=== PATIENT | male | born 1960 | race African-American/Black ===

== ENCOUNTER 2024-12-23 19:48 | Emergency (ER) | payer SELFPAY ==
[~2024-12-23] VITALS: Ht 167.6 cm; Wt 73.0 kg
[2024-12-23 20:01] VITALS: O2SAT 96
[2024-12-24] MEDS: TRANEXAMIC ACID 1,000MG/10ML TP ONE (00:15)
[2024-12-24] MEDS ORDERED: OFLO5DRO4 LEFT EAR (01:39)
[2024-12-24 02:42] VITALS: BP 142/85; PULSE 91; RESP 20; TEMP 36.7; O2SAT 94
== END 2024-12-24 02:42 | disposition home or self-care (01) ==
LOC: ER 19:48
DX: H92.23 Otorrhagia, bilateral (principal); I10 Essential (primary) hypertension; Z86.73 Personal history of transient ischemic attack (TIA), and cerebral infarction without residual deficits
CPT/HCPCS: 99283; Z7610 ×2

== ENCOUNTER 2025-01-22 13:31 | Inpatient (IN) | payer OTHER, MEDICAID ==
[~2025-01-22] VITALS: Ht 175.3 cm; Wt 72.6 kg
[~2025-01-22 13:31] MED LIST: OFLO5DRO4 LEFT EAR
[2025-01-22 14:53] LABS: BASOPHILS % 0.4 % (0.0-2.0); EOSINOPHILS % 3.2 % (0.0-5.0); HEMATOCRIT. 35.1 % (42.0-52.0); HEMOGLOBIN. 11.1 g/dL (14.0-18.0); LYMPHOCYTES % 38.2 % (20.0-50.0); MEAN CORPUSCULAR HEMOGLOBIN 28.4 pg (28.0-32.0); MEAN CORPUSCULAR HGB CONC 31.5 g/dL (31.0-37.0); MEAN CORPUSCULAR VOLUME 90.2 fL (80.0-94.0); MEAN PLATELET VOLUME 6.9 fl (7.4-10.4); MONOCYTES % 9.3 % (2.0-8.0); NEUTROPHILS % 48.9 % (40.0-76.0); PLATELET 298 x1000/uL (130-400); RED BLOOD CELL COUNT 3.89 mill/uL (4.7-6.1); RED CELL DISTRIBUTION WIDTH 16.1 % (11.6-14.6); WHITE BLOOD COUNT 4.1 x1000/uL (4.5-11.0)
[2025-01-22 14:58] LABS: CHLORIDE 105 mEq/L (98-107); POTASSIUM 4.4 mEq/L (3.5-5.1); SODIUM 141 mEq/L (136-145)
[2025-01-22 14:59] LABS: CARBON DIOXIDE 27 mEq/L (21-32)
[2025-01-22 15:00] LABS: CALCIUM 9.9 mg/dL (8.7-10.4)
[2025-01-22 15:04] LABS: CREATININE 0.8 mg/dL (0.6-1.3); GLUCOSE 126 mg/dL (70-105); UREA NITROGEN BLOOD 21 mg/dL (9-23)
[2025-01-22] MEDS: AMPICILLIN SOD/SULBACTAM NA 3 G in SODIUM CHLORIDE 0.9% 100 ML IV STA (15:10)
[2025-01-22 15:34] LABS: PROTHROMBIN TIME 10.9 sec (9.6-11.0)
[2025-01-22] MEDS: IOHEXOL-300 100 ML BOTTLE ONE (16:21)
[2025-01-22] MEDS ORDERED: MAGNESIUM/ALUMINUM HYDROXIDE/SIMETHICONE 30ML UDC PO PRN (17:45)
[2025-01-22] MEDS ORDERED: ACETAMINOPHEN 325MG TABLET PO PRN (17:45)
[2025-01-22] MEDS ORDERED: GUAIFENESIN 200MG/10ML SUGAR FREE UDC PO PRN (17:45)
[2025-01-22] MEDS ORDERED: DOCUSATE SODIUM 100MG CAPSULE PO PRN (17:45)
[2025-01-22] MEDS ORDERED: IPRATROPIUM/ALBUTEROL 0.5-3(2.5)MG/3ML NEB NEB PRN (17:45)
[2025-01-22] MEDS ORDERED: ONDANSETRON HCL 4MG/2ML INJ IV PRN (17:45)
[2025-01-22] MEDS ORDERED: HYDROCODONE/ACETAMINOPHEN 5/325MG TABLET PO PRN (17:45)
[2025-01-22] MEDS ORDERED: NALOXONE HCL 0.4MG/ML VIAL IV PRN (18:00)
[2025-01-22] MEDS: CLONIDINE 0.1MG TABLET PO PRN (18:53)
[2025-01-22] MEDS: ENOXAPARIN 40MG/0.4ML SYR SUBCUT SCH (18:53)
[2025-01-22 20:00] VITALS: BP_SYST 152; BP_SYST 166; BP_DIAS 102; BP_DIAS 109; PULSE 77; PULSE 79; RESP 18; RESP 19; TEMP 36; TEMP 36.4; O2SAT 99
[2025-01-22] MEDS ORDERED: AMPICILLIN SOD/SULBACTAM NA 3 G in SODIUM CHLORIDE 0.9% 100 ML IV SCH (20:00)
[2025-01-22] MEDS: AMPICILLIN SOD/SULBACTAM NA 3 G in SODIUM CHLORIDE 0.9% 100 ML IV SCH (22:20)
[2025-01-23] VITALS: BP 133/71; PULSE 71; RESP 19; TEMP 36.4; O2SAT 98
[2025-01-23 04:31] VITALS: BP 136/84; PULSE 65; RESP 20; TEMP 36.6; O2SAT 100
[2025-01-23 08:00] VITALS: BP 162/89; PULSE 83; RESP 20; TEMP 36.6; O2SAT 100
[2025-01-23 08:11] LABS: BASOPHILS % 0.5 % (0.0-2.0); EOSINOPHILS % 4.3 % (0.0-5.0); HEMATOCRIT. 31.8 % (42.0-52.0); HEMOGLOBIN. 10.1 g/dL (14.0-18.0); LYMPHOCYTES % 40.1 % (20.0-50.0); MEAN CORPUSCULAR HEMOGLOBIN 29.1 pg (28.0-32.0); MEAN CORPUSCULAR HGB CONC 31.8 g/dL (31.0-37.0); MEAN CORPUSCULAR VOLUME 91.5 fL (80.0-94.0); MEAN PLATELET VOLUME 6.9 fl (7.4-10.4); MONOCYTES % 9.5 % (2.0-8.0); NEUTROPHILS % 45.6 % (40.0-76.0); PLATELET 269 x1000/uL (130-400); RED BLOOD CELL COUNT 3.47 mill/uL (4.7-6.1); RED CELL DISTRIBUTION WIDTH 16.1 % (11.6-14.6); WHITE BLOOD COUNT 3.8 x1000/uL (4.5-11.0)
[2025-01-23 08:17] LABS: THYROID STIMULATING HORMONE 2.09 uIU/mL (0.55-4.78)
[2025-01-23 12:00] VITALS: BP 124/83; PULSE 79; RESP 20; TEMP 36.1; O2SAT 100
[2025-01-23 16:00] VITALS: BP 148/86; PULSE 66; RESP 18; TEMP 36.4; O2SAT 100
[2025-01-23] MEDS: VANCOMYCIN 1.5GM/250ML IV NR (16:00)
[2025-01-23 20:00] VITALS: BP 140/93; PULSE 63; RESP 18; TEMP 36.4; O2SAT 99
[2025-01-23] MEDS ORDERED: INFLUENZA VACCINE 05/PF 0.5 ML SYRINGE IM ONE (21:00)
[2025-01-24 00:30] VITALS: BP 160/100; PULSE 65; RESP 19; TEMP 36.3; O2SAT 99
[2025-01-24] MEDS: VANCOMYCIN 1GM/200ML PMX (BAXTER) IV SCH ×2 (00:30→20:49)
[2025-01-24 04:00] VITALS: BP 120/86; PULSE 61; RESP 20; TEMP 36.4; O2SAT 99
[2025-01-24 07:30] LABS: CALCIUM 9.3 mg/dL (8.7-10.4); CHLORIDE 104 mEq/L (98-107); POTASSIUM 3.9 mEq/L (3.5-5.1); SODIUM 141 mEq/L (136-145)
[2025-01-24 07:31] LABS: CARBON DIOXIDE 27 mEq/L (21-32)
[2025-01-24 07:33] LABS: BASOPHILS % 0.5 % (0.0-2.0); EOSINOPHILS % 3.4 % (0.0-5.0); HEMATOCRIT. 33.1 % (42.0-52.0); HEMOGLOBIN. 10.8 g/dL (14.0-18.0); LYMPHOCYTES % 37.8 % (20.0-50.0); MEAN CORPUSCULAR HEMOGLOBIN 29.3 pg (28.0-32.0); MEAN CORPUSCULAR HGB CONC 32.5 g/dL (31.0-37.0); MEAN CORPUSCULAR VOLUME 90.2 fL (80.0-94.0); MEAN PLATELET VOLUME 7.9 fl (7.4-10.4); MONOCYTES % 8.8 % (2.0-8.0); NEUTROPHILS % 49.5 % (40.0-76.0); PLATELET 285 x1000/uL (130-400); RED BLOOD CELL COUNT 3.67 mill/uL (4.7-6.1); RED CELL DISTRIBUTION WIDTH 16.2 % (11.6-14.6); WHITE BLOOD COUNT 4.1 x1000/uL (4.5-11.0)
[2025-01-24 07:36] LABS: CREATININE 0.8 mg/dL (0.6-1.3); GLUCOSE 78 mg/dL (70-105); UREA NITROGEN BLOOD 11 mg/dL (9-23)
[2025-01-24 08:00] VITALS: BP 166/82; PULSE 79; RESP 19; TEMP 37.7; O2SAT 99
[2025-01-24] MEDS ORDERED: VANCOMYCIN 1GM/200ML PMX (BAXTER) IV SCH (10:15)
[2025-01-24 12:00] VITALS: BP 122/78; PULSE 60; RESP 18; TEMP 36.9; O2SAT 98
[2025-01-24 16:00] VITALS: BP 128/71; PULSE 69; RESP 20; TEMP 36.8; O2SAT 99
[2025-01-24 20:00] VITALS: BP 131/92; PULSE 79; RESP 20; O2SAT 95
[2025-01-25] VITALS: BP 102/67; PULSE 57; RESP 18; TEMP 37; O2SAT 97
[2025-01-25 04:00] VITALS: BP 116/75; PULSE 72; RESP 20; TEMP 36.7; O2SAT 95
[2025-01-25 07:23] LABS: CHLORIDE 108 mEq/L (98-107); POTASSIUM 3.5 mEq/L (3.5-5.1)
[2025-01-25 07:24] LABS: CALCIUM 7.5 mg/dL (8.7-10.4); CARBON DIOXIDE 26 mEq/L (21-32)
[2025-01-25 07:29] LABS: CREATININE 0.8 mg/dL (0.6-1.3); GLUCOSE 77 mg/dL (70-105); UREA NITROGEN BLOOD 14 mg/dL (9-23)
[2025-01-25 08:00] VITALS: BP 127/85; PULSE 64; RESP 18; TEMP 36.7; O2SAT 96
[2025-01-25 08:00] LABS: BASOPHILS % 0.8 % (0.0-2.0); EOSINOPHILS % 2.9 % (0.0-5.0); HEMATOCRIT. 30.5 % (42.0-52.0); HEMOGLOBIN. 9.9 g/dL (14.0-18.0); LYMPHOCYTES % 38.7 % (20.0-50.0); MEAN CORPUSCULAR HEMOGLOBIN 29.8 pg (28.0-32.0); MEAN CORPUSCULAR HGB CONC 32.6 g/dL (31.0-37.0); MEAN CORPUSCULAR VOLUME 91.4 fL (80.0-94.0); MEAN PLATELET VOLUME 7.2 fl (7.4-10.4); MONOCYTES % 7.6 % (2.0-8.0); PLATELET 287 x1000/uL (130-400); RED BLOOD CELL COUNT 3.33 mill/uL (4.7-6.1); RED CELL DISTRIBUTION WIDTH 15.7 % (11.6-14.6); WHITE BLOOD COUNT 3.8 x1000/uL (4.5-11.0)
[2025-01-25 08:13] LABS: SODIUM 150 mEq/L (136-145)
[2025-01-25 12:00] VITALS: BP 139/92; PULSE 63; RESP 16; TEMP 36.3; O2SAT 99
[2025-01-25] MEDS: DEXT 5%/0.45% NACL 500ML 500 ML IV ONE (13:34)
[2025-01-25] MEDS: MUPIROCIN 2% OINT 22GM TOP SCH (13:59)
[2025-01-25 16:00] VITALS: BP 132/89; PULSE 67; RESP 16; TEMP 36.4; O2SAT 98
[2025-01-25 20:00] VITALS: BP 149/106; PULSE 83; RESP 19; TEMP 36.8; O2SAT 96
[2025-01-25] MEDS ORDERED: MUPIROCIN 2% OINT 22GM TOP SCH (21:00)
[2025-01-26] VITALS: BP 141/84; PULSE 73; RESP 18; TEMP 36; O2SAT 95
[2025-01-26 04:00] VITALS: BP 143/90; PULSE 73; RESP 18; TEMP 35.9; O2SAT 95
[2025-01-26 07:52] LABS: CHLORIDE 104 mEq/L (98-107); SODIUM 141 mEq/L (136-145)
[2025-01-26 07:53] LABS: CARBON DIOXIDE 27 mEq/L (21-32)
[2025-01-26 07:58] LABS: CREATININE 0.8 mg/dL (0.6-1.3); GLUCOSE 77 mg/dL (70-105)
[2025-01-26 07:59] LABS: UREA NITROGEN BLOOD 14 mg/dL (9-23)
[2025-01-26 08:00] VITALS: BP 148/98; PULSE 77; RESP 16; TEMP 36.6; O2SAT 95
[2025-01-26 08:04] LABS: BASOPHILS % 0.3 % (0.0-2.0); EOSINOPHILS % 2.8 % (0.0-5.0); HEMATOCRIT. 34.1 % (42.0-52.0); HEMOGLOBIN. 11.1 g/dL (14.0-18.0); LYMPHOCYTES % 34.8 % (20.0-50.0); MEAN CORPUSCULAR HEMOGLOBIN 29.2 pg (28.0-32.0); MEAN CORPUSCULAR HGB CONC 32.4 g/dL (31.0-37.0); MEAN CORPUSCULAR VOLUME 89.9 fL (80.0-94.0); MEAN PLATELET VOLUME 7.7 fl (7.4-10.4); MONOCYTES % 8.3 % (2.0-8.0); NEUTROPHILS % 53.8 % (40.0-76.0); PLATELET 295 x1000/uL (130-400); RED CELL DISTRIBUTION WIDTH 15.8 % (11.6-14.6); WHITE BLOOD COUNT 4.4 x1000/uL (4.5-11.0)
[2025-01-26 12:00] VITALS: BP 149/88; PULSE 73; RESP 18; TEMP 36.3; O2SAT 95
[2025-01-26 16:00] VITALS: BP 135/89; PULSE 79; RESP 18; TEMP 36.4; O2SAT 95
[2025-01-26 20:00] VITALS: BP 147/84; PULSE 78; RESP 18; TEMP 36.9; O2SAT 96
[2025-01-26] MEDS: ACETAMINOPHEN 325MG TABLET PO PRN (20:05)
[2025-01-27] VITALS: BP 143/83; PULSE 77; RESP 20; TEMP 36.8; O2SAT 98
[2025-01-27 04:00] VITALS: BP 130/88; PULSE 86; RESP 19; TEMP 36.9; O2SAT 98
[2025-01-27 07:18] LABS: BASOPHILS % 0.4 % (0.0-2.0); EOSINOPHILS % 2.9 % (0.0-5.0); HEMATOCRIT. 34.4 % (42.0-52.0); HEMOGLOBIN. 10.9 g/dL (14.0-18.0); LYMPHOCYTES % 35.3 % (20.0-50.0); MEAN CORPUSCULAR HEMOGLOBIN 28.7 pg (28.0-32.0); MEAN CORPUSCULAR HGB CONC 31.6 g/dL (31.0-37.0); MEAN CORPUSCULAR VOLUME 90.9 fL (80.0-94.0); MEAN PLATELET VOLUME 7.8 fl (7.4-10.4); MONOCYTES % 11.2 % (2.0-8.0); NEUTROPHILS % 50.2 % (40.0-76.0); PLATELET 307 x1000/uL (130-400); RED BLOOD CELL COUNT 3.79 mill/uL (4.7-6.1); WHITE BLOOD COUNT 4.3 x1000/uL (4.5-11.0)
[2025-01-27 08:00] VITALS: BP 122/60; PULSE 67; RESP 18; TEMP 36.6; O2SAT 99
[2025-01-27 08:14] LABS: CALCIUM 8.8 mg/dL (8.7-10.4); CHLORIDE 106 mEq/L (98-107); POTASSIUM 4.1 mEq/L (3.5-5.1); SODIUM 141 mEq/L (136-145)
[2025-01-27 08:15] LABS: CARBON DIOXIDE 27 mEq/L (21-32)
[2025-01-27 08:20] LABS: CREATININE 0.7 mg/dL (0.6-1.3); GLUCOSE 83 mg/dL (70-105); UREA NITROGEN BLOOD 13 mg/dL (9-23)
[2025-01-27 12:00] VITALS: BP 123/65; PULSE 69; RESP 18; TEMP 36.6; O2SAT 99
[2025-01-27 16:00] VITALS: BP 120/69; PULSE 67; RESP 18; TEMP 36.7; O2SAT 99
[2025-01-27 20:00] VITALS: BP 145/96; PULSE 84; RESP 19; TEMP 36.7; O2SAT 95
[2025-01-28] VITALS: BP 144/97; PULSE 79; RESP 18; TEMP 36.6; O2SAT 94
[2025-01-28 07:07] LABS: BASOPHILS % 0.7 % (0.0-2.0); EOSINOPHILS % 3.4 % (0.0-5.0); HEMATOCRIT. 35.7 % (42.0-52.0); HEMOGLOBIN. 11.6 g/dL (14.0-18.0); MEAN CORPUSCULAR HGB CONC 32.5 g/dL (31.0-37.0); MEAN CORPUSCULAR VOLUME 89.3 fL (80.0-94.0); MEAN PLATELET VOLUME 7.6 fl (7.4-10.4); MONOCYTES % 10.1 % (2.0-8.0); NEUTROPHILS % 47.8 % (40.0-76.0); PLATELET 300 x1000/uL (130-400); RED CELL DISTRIBUTION WIDTH 15.8 % (11.6-14.6)
[2025-01-28 07:24] LABS: CARBON DIOXIDE 27 mEq/L (21-32); CHLORIDE 103 mEq/L (98-107); SODIUM 139 mEq/L (136-145)
[2025-01-28 07:25] LABS: CALCIUM 9.4 mg/dL (8.7-10.4)
[2025-01-28 07:29] LABS: CREATININE 0.8 mg/dL (0.6-1.3); GLUCOSE 92 mg/dL (70-105)
[2025-01-28 07:30] LABS: UREA NITROGEN BLOOD 13 mg/dL (9-23)
[2025-01-28 08:00] VITALS: BP 169/111; PULSE 96; RESP 20; TEMP 36.7; O2SAT 98
[2025-01-28 08:05] VITALS: BP 143/98
[2025-01-28] MEDS: HYDRALAZINE HCL 25MG TABLET PO SCH (11:59)
[2025-01-28 12:00] VITALS: BP 149/99; PULSE 99; RESP 20; TEMP 36.7; O2SAT 98
[2025-01-28 16:00] VITALS: BP 117/78; PULSE 84; RESP 18; TEMP 36.5; O2SAT 98
[2025-01-28 20:00] VITALS: BP 127/82; PULSE 83; RESP 16; TEMP 36.9; O2SAT 96
[2025-01-29] VITALS: BP 143/93; PULSE 79; RESP 16; TEMP 36.6; O2SAT 98
[2025-01-29 04:00] VITALS: BP 109/74; PULSE 84; RESP 16; TEMP 36.6; O2SAT 92
[2025-01-29 08:00] VITALS: BP 145/115; PULSE 125; RESP 20; TEMP 36.7; O2SAT 94
[2025-01-29 12:00] VITALS: BP 147/95; PULSE 78; RESP 16; TEMP 36.4; O2SAT 94
[2025-01-29] MEDS ORDERED: CLONIDINE 0.1MG TABLET PO PRN (12:00)
[2025-01-29 16:00] VITALS: BP 119/86; PULSE 107; RESP 19; TEMP 36.4; O2SAT 94
[2025-01-29 20:00] VITALS: BP 121/92; PULSE 95; RESP 20; TEMP 36.4; O2SAT 96
[2025-01-30] VITALS: BP 148/98; PULSE 94; RESP 20; TEMP 36.4; O2SAT 96
[2025-01-30 04:00] VITALS: BP 129/89; PULSE 81; RESP 19; TEMP 36.4; O2SAT 95
[2025-01-30 08:00] VITALS: BP 127/89; PULSE 89; RESP 16; TEMP 36.1; O2SAT 95
[2025-01-30 12:00] VITALS: BP 126/93; PULSE 89; RESP 18; TEMP 36.4; O2SAT 96
[2025-01-30 16:00] VITALS: BP 125/86; PULSE 90; RESP 18; TEMP 36.4; O2SAT 97
[2025-01-30 20:00] VITALS: BP 113/70; PULSE 98; RESP 19; TEMP 36.4; O2SAT 98
[2025-01-31] VITALS: BP 130/70; PULSE 94; RESP 20; TEMP 36.7; O2SAT 94
[2025-01-31 04:00] VITALS: BP 100/72; PULSE 89; RESP 19; TEMP 36.3; O2SAT 98
[2025-01-31 08:00] VITALS: BP 121/78; PULSE 87; RESP 18; TEMP 36.7; O2SAT 99
[2025-01-31 12:00] VITALS: BP 102/72; PULSE 87; RESP 20; TEMP 36.7; O2SAT 100
[2025-01-31 16:00] VITALS: BP 139/71; PULSE 83; RESP 20; TEMP 36.7; O2SAT 100
[2025-01-31 20:00] VITALS: BP 113/80; PULSE 87; RESP 18; TEMP 36.5; O2SAT 96
[2025-02-01] VITALS (7 sets, daily range): BP systolic 113–126; BP diastolic 80–93; PULSE 77–88; RESP 17–20; TEMP 36.4–36.8; O2SAT 95–99
[2025-02-02] VITALS: BP 128/89; PULSE 77; RESP 18; TEMP 36.7; O2SAT 98
[2025-02-02 04:00] VITALS: BP 106/73; PULSE 80; RESP 19; TEMP 36.3; O2SAT 100
[2025-02-02 08:00] VITALS: BP 133/84; PULSE 78; RESP 20; TEMP 36.4; O2SAT 95
[2025-02-02 10:21] LABS: HEMATOCRIT. 37.6 % (42.0-52.0); HEMOGLOBIN. 12.2 g/dL (14.0-18.0); LYMPHOCYTES % 49.1 % (20.0-50.0); MEAN CORPUSCULAR HEMOGLOBIN 29.7 pg (28.0-32.0); MEAN CORPUSCULAR HGB CONC 32.5 g/dL (31.0-37.0); MEAN CORPUSCULAR VOLUME 91.1 fL (80.0-94.0); MEAN PLATELET VOLUME 7.7 fl (7.4-10.4); MONOCYTES % 7.2 % (2.0-8.0); NEUTROPHILS % 39.7 % (40.0-76.0); PLATELET 324 x1000/uL (130-400); RED BLOOD CELL COUNT 4.13 mill/uL (4.7-6.1); RED CELL DISTRIBUTION WIDTH 15.7 % (11.6-14.6); WHITE BLOOD COUNT 3.8 x1000/uL (4.5-11.0)
[2025-02-02 10:43] LABS: CHLORIDE 102 mEq/L (98-107); POTASSIUM 4.6 mEq/L (3.5-5.1); SODIUM 137 mEq/L (136-145)
[2025-02-02 10:44] LABS: CALCIUM 9.4 mg/dL (8.7-10.4); CARBON DIOXIDE 29 mEq/L (21-32)
[2025-02-02 10:49] LABS: GLUCOSE 130 mg/dL (70-105); UREA NITROGEN BLOOD 17 mg/dL (9-23)
[2025-02-02 12:00] VITALS: BP 113/69; PULSE 90; RESP 18; TEMP 36; O2SAT 98
[2025-02-02 16:00] VITALS: BP 122/74; PULSE 78; RESP 20; TEMP 36.2; O2SAT 96
[2025-02-02 20:00] VITALS: BP 123/89; PULSE 78; RESP 19; TEMP 36.4; O2SAT 100
[2025-02-03] VITALS: BP 117/84; PULSE 74; RESP 19; TEMP 36.3; O2SAT 98
[2025-02-03 04:00] VITALS: BP 135/79; PULSE 75; RESP 19; TEMP 36.3; O2SAT 100
[2025-02-03 06:49] LABS: BASOPHILS % 0.7 % (0.0-2.0); HEMATOCRIT. 36.8 % (42.0-52.0); HEMOGLOBIN. 12.3 g/dL (14.0-18.0); LYMPHOCYTES % 52.6 % (20.0-50.0); MEAN CORPUSCULAR HEMOGLOBIN 29.6 pg (28.0-32.0); MEAN CORPUSCULAR HGB CONC 33.3 g/dL (31.0-37.0); MEAN CORPUSCULAR VOLUME 89.1 fL (80.0-94.0); MEAN PLATELET VOLUME 8.2 fl (7.4-10.4); NEUTROPHILS % 35.7 % (40.0-76.0); PLATELET 296 x1000/uL (130-400); RED BLOOD CELL COUNT 4.13 mill/uL (4.7-6.1); RED CELL DISTRIBUTION WIDTH 15.8 % (11.6-14.6)
[2025-02-03 07:17] LABS: CALCIUM 9.3 mg/dL (8.7-10.4); CARBON DIOXIDE 26 mEq/L (21-32); CHLORIDE 103 mEq/L (98-107); POTASSIUM 4.4 mEq/L (3.5-5.1); SODIUM 138 mEq/L (136-145)
[2025-02-03 07:23] LABS: CREATININE 0.9 mg/dL (0.6-1.3); GLUCOSE 81 mg/dL (70-105); UREA NITROGEN BLOOD 18 mg/dL (9-23)
[2025-02-03 08:00] VITALS: BP 113/75; PULSE 73; RESP 20; TEMP 36.8; O2SAT 100
[2025-02-03 12:00] VITALS: BP 129/91; PULSE 82; RESP 20; TEMP 36.7; O2SAT 100
[2025-02-03 16:00] VITALS: BP 133/90; PULSE 101; RESP 20; TEMP 36.7; O2SAT 100
[2025-02-03 20:00] VITALS: BP_SYST 121; BP_SYST 128; BP_DIAS 74; BP_DIAS 76; PULSE 100; PULSE 91; RESP 18; TEMP 36.1; TEMP 36.6; O2SAT 100; O2SAT 99
[2025-02-04] VITALS: BP 120/72; PULSE 89; RESP 16; TEMP 36.2; O2SAT 98
[2025-02-04 04:00] VITALS: BP 137/68; PULSE 86; RESP 16; TEMP 36.1; O2SAT 99
[2025-02-04 08:00] VITALS: BP 122/88; PULSE 97; RESP 16; TEMP 36.4; O2SAT 96
[2025-02-04 12:00] VITALS: BP 113/77; PULSE 76; RESP 18; TEMP 36.5; O2SAT 96
[2025-02-04 16:00] VITALS: BP 117/72; PULSE 73; RESP 18; TEMP 36.6; O2SAT 95
[2025-02-04 20:00] VITALS: BP 117/68; PULSE 80; RESP 19; TEMP 36.9; O2SAT 96
[2025-02-05] VITALS: BP 119/74; PULSE 61; RESP 18; TEMP 37; O2SAT 98
[2025-02-05 04:00] VITALS: BP 112/75; PULSE 68; RESP 19; TEMP 37; O2SAT 96
[2025-02-05 08:00] VITALS: BP 115/72; PULSE 87; RESP 18; TEMP 36.6; O2SAT 97
[2025-02-05 09:22] VITALS: BP 115/72; PULSE 87; TEMP 97.9; O2SAT 97
== END 2025-02-05 12:30 | disposition home or self-care (01) | DRG 383 ==
LOC: ER 13:31 → 8EST 16:43 → EDBEDREQ 16:45
PROVIDERS: ADMIT Internal Medicine; ATTEND Internal Medicine
DX: L03.211 Cellulitis of face (principal); D64.9 Anemia, unspecified; I10 Essential (primary) hypertension; R04.0 Epistaxis; Z86.73 Personal history of transient ischemic attack (TIA), and cerebral infarction without residual deficits
CPT/HCPCS: 36415; 70487; 80048; 80061; 80202; 83036; 83605; 84145; 84443; 85025; 86850; 86900; 90686; 97162; 97166; 99285; J0295; J1650; J3370; J7050; Q9967